=== PATIENT | male | born 1965 | race Caucasian/White ===

== ENCOUNTER 2017-11-06 18:54 | Emergency (ER) | payer OTHER, MEDICAID, SELFPAY ==
[2017-11-06 18:55] VITALS: BP 126/84; PULSE 102; RESP 18; O2SAT 100; BMI 31.1
--- NOTE | 2017-11-06 19:04 | DI.RAD.S_ITS ---
PROCEDURE: XR CHEST 1V INDICATIONS: right sided chest pain s/p trauma TECHNIQUE: One view of the chest was acquired. COMPARISON: None. FINDINGS: Surgical changes and devices: None. Lungs and pleura: No pleural effusions or pneumothorax. Lungs are clear. Mediastinum: Mediastinal contours appear normal. Heart size is normal. Bones and chest wall: No suspicious bony lesions. Overlying soft tissues appear unremarkable. IMPRESSION: No acute cardiopulmonary disease process. Dictated by: Vi Valenzuela MD, PhD on 11/06/2017 at 19:28 Approved by: Vi Valenzuela MD, PhD on 11/06/2017 at 19:28
[2017-11-06 19:32] LABS: Add Manual Diff / Slide Review NO; Basophils Percent Auto 0.6 % (0-2); Eosinophils Percent Auto 0.2 % (2-4); Hematocrit 36.8 % (41-53); Hemoglobin 12.2 g/dL (13.5-17.5); Lymphocytes Percent Auto 21.2 % (25-40); Mean Corpuscular HGB Conc 33.2 % (30-36); Mean Corpuscular Hemoglobin 29.2 PG (26-34); Mean Corpuscular Volume 87.9 fL (80-100); Monocytes Percent Auto 9.3 % (3-14); Neutrophils Absolute Auto 6300 /uL (3000-5900); Neutrophils Percent Auto 68.7 % (50-75); Platelet Count 253 X10^3/uL (150-400); Red Blood Cell Count 4.19 X10^6/uL (4.5-5.9); Red Cell Distribution Width 13.7 % (11.6-14.8); White Blood Cell Count 9.2 X10^3/uL (4.5-11.0)
[2017-11-06 19:37] VITALS: TEMP 36.6
[2017-11-06 19:42] LABS: BUN Creatinine Ratio 28.3 (6-22); Blood Urea Nitrogen 17 mg/dL (9-20); Calcium 8.5 mg/dL (8.4-10.2); Carbon Dioxide 23 mmol/L (22-32); Chloride 103 mmol/L (98-107); Estimated Glomerular Filt Rate > 60.0 mL/min (>60); Ethanol (ETOH) < 10 mg/dL; Glucose 97 mg/dL (70-100); HEMOLYSIS < 15 (0-50); Potassium 3.5 mmol/L (3.4-5.1); Sodium 138 mmol/L (137-145)
[2017-11-06 20:14] LABS: Thyroid Stimulating Hormone 1.32 uIU/mL (0.47-4.68)
--- NOTE | 2017-11-06 21:01 | ED_ITS ---
HPI - Neuro Symptoms/Deficit General Chief Complaint: Neuro Symptoms/Deficit Stated Complaint: ALOC Time Seen by Provider: 11/06/17 18:56 History of Present Illness HPI Narrative: HPI 52-year-old male presents for evaluation after police found him hiding in bushes during a welfare check; patient reports he was hiding as he is concerned that he is wanted by [employer] as he never checks in. Patient denies SI, HI, notes mild restless legs, notes that he injected methamphetamines in his hand this morning. Denies chest pain, fevers, chills. Patient reports that his right lateral chest wall has been tender to palpation after a mechanical fall yesterday in which he struck the metal side of a urinal. M/S/F/SocHx notable for: please see HPI; remainder reviewed with patient and in chart. ROS: Negative constitutional, eye, cardiovascular, pulmonary, GI, , MSK, skin , neurologic, psychiatric, endocrine unless noted in the HPI. Exam Gen: Pleasant, non-toxic appearing, resting comfortably. Mildly increased psychomotor agitation HEENT: NC, AT, PEERL, EOMI. Resp: Clear to auscultation bilaterally, normal work of breathing, no accessory muscle usage. Card: Regular rate and rhythm with no murmurs, rubs, or gallops, extremities warm and well perfused. GI: Non-tender to palpation throughout all quadrants, no focal tenderness at McBurney's point, non-distended, no rebound or guarding. : No suprapubic tenderness to palpation. MSK: No visible deformities, strength and tone without visually appreciable deficit. No visible or palpable chest wall abnormalities, no appreciable right sided chest wall tenderness palpation. Skin: superficial abrasions on anterior abdomen, bilateral dorsums of hands without erythema, swelling, warmth, fluctuance, or tenderness. Superficial punctate lesions. Neuro: AO x 3, no facial asymmetry, vision and hearing WNL. Psych: unusual mood and affect. Labs / Imaging: WBC 9.2, HB 12.2, NA 138, K 3.5 TSH 1.32 EtOH less than 10 CXR: no acute cardiopulmonary disease process. Radiologist read pending. MDM Previous chart, nursing note, labs, imaging, and vitals reviewed. A: 52-year-old male presents for evaluation after police found him hiding in bushes during a welfare check; patient reports he was hiding as he is concerned that he is wanted by [employer] as he never checks in. Evaluation: patient without an acute identifiable medical process. Patient noted to have mild psychomotor agitation consistent with his reported history of methamphetamine abuse, as he is no clinically significant toxidromes that appear to represent emergent medical process a drug screen was not indicated. The apparent reason for the patient's complaint - hiding in bushes - is consistent with rational thought as the patient has been using illegal drugs and failing to check in with [employer] as he is apparently supposed to do. The patient is without suicidal or homicidal ideation, there are no identifiable areas of soft tissue infection, given the absence of fever, chest pain, or murmurs further evaluation with respect to possible endocarditis is not presently indicated. With respect to possible chest trauma, there are no visible or objectively palpable abnormalities and the patient's chest x-ray is without evidence of apparent fracture, pneumothorax, or other acute process. The patient has no abdominal tenderness on palpation. Suspect contusions. Patient was discharged with instructions to follow up with PCP and return to care precautions provided. Impression: drug use, medical screening On Anticoagulants: No [facility] Social History Smoking Status: Current every day smoker Exam Initial Vital Signs Initial Vital Signs: Vital Signs Pulse Rate 102 H 11/06/17 18:55 Respiratory Rate 18 11/06/17 18:55 Blood Pressure 126/84 H 11/06/17 18:55 Pulse Oximetry 100 11/06/17 18:55 Course Orders Ordered: ED Orders 11/06/17 19:04 XR chest 1V Stat 11/06/17 19:05 Urinalysis and Microscopic Stat Urine Drug Screen, Rapid Stat 11/06/17 19:25 Basic Metabolic Panel Stat Complete Blood Count AUTO DIFF Stat Ethanol (ETOH) Stat Thyroid Stimulating Hormone Stat Vital Signs - 8 hr 11/06/17 18:55 11/06/17 19:37 Temperature 97.9 F Pulse Rate 102 H Respiratory Rate 18 Blood Pressure 126/84 H Pulse Oximetry 100 MDM - Neuro Symptoms/Deficit Lab Data Result diagrams: 11/06/17 19:25 11/06/17 19:25 Lab Results 11/06/17 11/06/17 11/06/17 Range/Units 19:25 19:25 19:25 WBC 9.2 (4.5-11.0) X10^3/uL RBC 4.19 L (4.5-5.9) X10^6/uL Hgb 12.2 L (13.5-17.5) g/dL Hct 36.8 L (41-53) % MCV 87.9 (80-100) fL MCH 29.2 (26-34) PG MCHC 33.2 (30-36) % RDW 13.7 (11.6-14.8) % Plt Count 253 (150-400) X10^3/uL Neut % (Auto) 68.7 (50-75) % Lymph % (Auto) 21.2 L (25-40) % [place] % (Auto) 9.3 (3-14) % Eos % (Auto) 0.2 L (2-4) % Baso % (Auto) 0.6 (0-2) % Neut # (Auto) 6300 H (5476-6080) /uL Sodium 138 (137-145) mmol/L Potassium 3.5 (3.4-5.1) mmol/L Chloride 103 (98-107) mmol/L Carbon Dioxide 23 (22-32) mmol/L BUN 17 (9-20) mg/dL Creatinine 0.60 L (0.66-1.25) mg/dL Estimated GFR > 60.0 (>60) mL/min BUN/Creatinine Ratio 28.3 H (6-22) Glucose 97 (70-100) mg/dL Calcium 8.5 (8.4-10.2) mg/dL TSH 1.32 (0.47-4.68) uIU/mL Ethyl Alcohol < 10 mg/dL Discharge Plan Departure Patient Disposition: Home, Self-Care Clinical Impression: Encounter for medical screening examination Discharge Date/Time: 11/06/17 21:40 Interventions: ED Discharge Assessment Last Done: 11/06/17 21:39 Activity Restrictions/Additional Instructions: You were in seen in the [facility] Emergency Department for screening after being found by police. No significant abnormalities were noted. Please do not use illegal drugs, these can kill you or cause significant injury. Please read and follow all of the instructions below. Please follow up with your primary care physician and 1-2 days for further evaluation and care. If you have any new symptoms or if you are at all concerned about your health please return immediately to the emergency department. If you do not have a primary care physician, please contact [facility], [place], [facility] at [phone], [facility] at [phone], or [facility] at [phone] to arrange follow up care. If you have health insurance, please also contact your insurer for a list of accepting providers under your policy, you may contact these providers for further health care. Your care today was limited to identifying and treating emergent medical problems only. Many people have subtle differences in their test results that require follow up with their outpatient physician(s) to correctly determine if this represents a normal variation or concerning abnormality with respect to your specific health. The care given to you today was limited to identifying and treating emergent medical problems - you need to request a copy of all of your medical records from today's visit and follow up with your outpatient physician(s) to review both today's visit and your overall health.
[2017-11-06 21:26] VITALS: BP 115/68; PULSE 100; RESP 21; O2SAT 98
[2017-11-06 21:39] VITALS: BP 122/72; PULSE 92; RESP 20; O2SAT 99
== END 2017-11-06 21:40 | disposition home or self-care (01) ==
PROVIDERS: Emergency Provider Emergency Medicine
DX: R40.4 Transient alteration of awareness (principal); R07.89 Other chest pain
CPT/HCPCS: 71045; 80048; 80320; 84443; 85025; 99283; 99284; 99291